=== PATIENT | female | born 1985 | race Caucasian/White ===

== ENCOUNTER 2016-06-16 14:02 | Emergency (ER) | payer OTHER ==
[~2016-06-16] VITALS: Ht 167.6 cm; Wt 77.3 kg
[2016-06-16 14:10] VITALS: BP 143/89; PULSE 101; RESP 18; O2SAT 100
--- NOTE | 2016-06-16 14:53 | ED.REPORT ---
HPI-Chest Pain Under 40 Date of Service Jun 16, 2016 ED Provider: Dr. Carlo Brown D.O. An otherwise healthy 30 year old female presents to the ED from Urgent Care with intermittent left-sided chest pain onset four days ago while laughing. The pain lasts for ten minutes at a time and is described as an "ache," exacerbated by alcohol and drugs. Associated symptoms include dizziness and left arm numbness. She denies shortness of breath or nausea. The ECG taken at Urgent Care was read as atrial flutter but clearly indicates normal sinus rhythm with PVCs. The patient has been using alcohol and cocaine quite frequently over the past eight months. Her last cocaine use was one week ago. Nursing Notes Stated Complaint: CHEST PAIN Chief Complaint: Chest Pain Nursing Notes Reviewed: Yes Allergies: Coded Allergies: paroxetine (Verified Allergy, Unknown, naussea, 06/16/16) hydrocodone (Verified Adverse Reaction, Intermediate, vomiting, 06/16/16) No Active Prescriptions or Reported Meds General Time Seen by MD: 14:52 Chief Complaint Chest pain Hx Obtained From: Patient Arrived By: Walk-in Sudden in Onset?: Yes Onset Occurred: 4 days ago Symptom Duration: Since onset Location: : Chest left Quality: Aching, Painful Severity: Current: Moderate Severity: Maximum: Moderate Associated with: Reports: Numbness/tingling, Denies: Fever, Nausea, Shortness of breath Pertinent Negative: Relieved by nothing Recent Healthcare: Recent doctor visit Past Medical History Past Medical History None reported Past Surgical History None reported Smoking History Current Every Day Smoker Social History Alcohol Use: 1-3 per day 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 Physical Exam Initial Vital Signs Vital Signs (First) Date Time Temp Pulse Resp B/P Pulse Ox O2 Delivery O2 Flow Rate FiO2 06/16/16 14:10 36.6 101 18 143/89 100 Room Air Initial VS: Reviewed Head / Eyes: Atraumatic, Normocephalic ENT: Conjunctiva normal, No scleral icterus Neck: Supple, Full range of motion Skin: Warm, Dry, No cyanosis Neurologic: Alert, Oriented, Nonfocal General/Constitutional: Awake, Alert Behavior: Positive: Anxious Respiratory / Chest: Breath sounds NL, Breath sounds = bilat, No respiratory distress Cardiovascular: Heart rate NL, Heart sounds NL Frequent PVCs Psychiatric: Cognitive function NL, Judgment/insight NL, Thought content NL Abnormal Mood/Affect: Positive: Anxious Interpretation & Diagnostics Lab Results Interpretation Result Diagram: 06/16/16 1540 06/16/16 1540 Test 06/16/16 14:40 06/16/16 15:40 06/16/16 17:56 Hold Urine Received (Received) White Blood Count 7.6th/mm3 (3.8-10.1) Red Blood Count 4.79mil/mm3 (3.90-5.20) Hemoglobin 14.5g/dL (12.0-15.6) Hematocrit 41.7% (35.0-46.0) Mean Corpuscular Volume 87.1fL (81-100) Mean Corpuscular Hemoglobin 30.3pg (27.0-35.0) Mean Corpuscular Hemoglobin Concent 34.8% (32.0-37.0) Red Cell Distribution Width 13.5% (12.3-15.4) Platelet Count 214bil/L (150-400) Neutrophils (%) (Auto) 74.7% (40-74) Lymphocytes (%) (Auto) 18.1% (14-46) Monocytes (%) (Auto) 5.1% (4-12) Eosinophils (%) (Auto) 1.3% (0-5) Basophils (%) (Auto) 0.4% (0-3) D-Dimer < 0.5mg/L (<0.50) Sodium Level 140mEq/L (134-144) Potassium Level 3.9mEq/L (3.5-5.2) Chloride Level 101mEq/L (97-108) Carbon Dioxide Level 24mmol/L (18-29) Blood Urea Nitrogen 9mg/dL (6-20) Creatinine 0.59mg/dL (0.57-1.00) Estimat Glomerular Filtration Rate 171mL/min (>59) Glucose Level 109mg/dL (60-99) Calcium Level 9.2mg/dL (8.5-10.1) Magnesium Level 2.3mg/dL (1.6-2.6) Total Bilirubin 0.4mg/dL (0.0-1.2) Aspartate Amino Transf (AST/SGOT) 15U/L (0-50) Alanine Aminotransferase (ALT/SGPT) 15U/L (0-32) Alkaline Phosphatase 44U/L (25-150) Pro-B-Type Natriuretic Peptide 39.72pg/mL (0-130) Total Protein 7.5g/dL (6.4-8.4) Albumin 4.9g/dL (3.4-5.0) Hold Matthew Top Tube Received (Received) Troponin T < 0.010ug/L (0.0-0.011) ECG Interpretation ECG Interpretation: Sinus rhythm rate 77 Normal ECG Time: 14:57 Interpreted by: ED physician X-Ray Chest Interpretation Chest Xray Interpretation: IMPRESSION: Normal chest Dictated by: Rc Lovell M.D. on 06/16/2016 at 15:01 View: Portable, 1 view Interpretation / Wet Read by: Interpret - Radiologist Re-Eval/Medical Decision Med Decision/Clinical Course I do not concur with the computer reading of the EKG from the urgent care. I feel that this is sinus rhythm with an obvious ID interval and QRS complexes following every P wave. There were instill R frequent PVCs. We observe this young lady for 4 hours on telemetry. She still had some frequent PVCs. Fluids were given. Dose of metoprolol was given. The PVCs for the most part resolved. She never had a tachycardia arrhythmia. MD was ruled out with history, physical, heart score and serial troponins. PE was ruled out with Wells criteria, pulmonary MD rule out criteria and a negative d-dimer. Electrolyte abnormality was ruled out. At discharge she felt great. I think that her symptoms are related to drug and alcohol abuse as well as anxiety. Vital long discussion with this. I am going to provide her a short course of Xanax to be taken for anxiety symptoms that she does not medicate with alcohol sedatives or stimulants. She agrees to this. She understands that if she mixes Xanax with drugs or alcohol it could be fatal. I explained all of that. She agreed to it. I will refer her to cardiology as well as primary care. She was discharged in stable condition. Source of Hx: Old records Re-Evaluation/Progress #1: Time of Eval: 17:27 Patient Status: Condition improved Re-Evaluation/Progress Note: Discussed with patient lab and x-ray results, diagnosis, and plan for repeat labs and probable discharge. Follow-up and return to the ER instructions given. Patient agrees with plan for care and all questions were addressed. Re-Evaluation/Progress #2: Time of Eval: 18:50 Patient Status: Condition improved, Complete relief Re-Evaluation/Progress Note: Patient rechecked. Discussed lab results and plan for discharge. Her symptoms have resolved. Counseled Regarding: Diagnosis, Lab results, Need for follow-up, When/why to return to ED Discharge & Departure Primary Impression: Chest pain Chest pain type: unspecified Qualified Code: R07.9 - Chest pain, unspecified Additional Impression: Palpitations Disposition: Home Discharge Condition All VS Reviewed: Yes Condition: Stable Patient Instructions: Chest Pain (ED), Palpitations (ED) Additional Instructions: Thank you for entrusting us with your care. Your exam today was reassuring for any life threatening causes of your chest pain. Your EKG showed premature ventricular contractions. Neither your Urgent Care nor your Emergency Department EKG showed atrial fibrillation in my opinion. I strongly recommend you do not use drugs of any kind, especially stimulants. For anxiety please take one Xanax every eight hours as prescribed. Do not drink alcohol, drive, or consume acetaminophen while taking Xanax. Call your primary care provider tomorrow for a follow-up appointment. Return to the ER with any new or worsening symptoms. Referrals: Jin Pimentel MD [facility] Attestation Portions of this note were transcribed by Rosamaria Callejas. I, Dr. Brown, personally performed the history, physical exam, and medical decision-making; I reviewed and confirmed the accuracy of the information in the transcribed note. Signed by: Marcio Roberts, 06/16/2016, 19:10 copies to: Jin Pimentel MD; [facility] Carlo Brown DO Jun 16, 2016 14:53 ROSAMARIA CALLEJAS Jun 16, 2016 15:00
--- NOTE | 2016-06-16 15:05 | DRSVH ---
PROCEDURE: X-RAY CHEST ONE VIEW, PORTABLE ([id number]) INDICATIONS: Chest Pain TECHNIQUE: One view of the chest was acquired. COMPARISON: None. FINDINGS: Surgical changes and devices: None. Lungs and pleura: No pleural effusions or pneumothorax. Lungs are clear. Mediastinum: Mediastinal contours appear normal. Heart size is normal. Bones and chest wall: No suspicious bony lesions. Overlying soft tissues appear unremarkable. IMPRESSION: Normal chest Dictated by: Rc Lovell M.D. on 06/16/2016 at 15:01 Approved by: Rc Lovell M.D. on 06/16/2016 at 15:02
[2016-06-16] MEDS ORDERED: 0.9% Sodium Chloride 1,000 ML IV SCH (15:15)
[2016-06-16 16:02] LABS: BASOPHILS % (AUTO) 0.4 % (0-3); EOSINOPHILS % (AUTO) 1.3 % (0-5); MONOCYTES % (AUTO) 5.1 % (4-12); Mean Corpuscular Hemoglobin 30.3 pg (27.0-35.0); Mean Corpuscular Volume 87.1 fL (81-100); NEUTROPHILS % (AUTO) 74.7 % (40-74); Platelet Count 214 bil/L (150-400)
[2016-06-16 16:33] LABS: TROPONIN T < 0.010 ug/L (0.0-0.011)
[2016-06-16 16:36] LABS: Magnesium 2.3 mg/dL (1.6-2.6)
[2016-06-16 16:51] VITALS: BP 136/83; PULSE 79; RESP 21; O2SAT 99
[2016-06-16] MEDS ORDERED: MeTOProlol 1 mg/mL 5 mL Inj IVPUSH ONE (17:30)
[2016-06-16 17:49] VITALS: BP 110/80; PULSE 59; RESP 14; O2SAT 99
[2016-06-16 18:25] VITALS: BP 120/83; PULSE 68; RESP 20; O2SAT 98
[2016-06-16 19:03] VITALS: BP 126/68; PULSE 68; RESP 14; O2SAT 97
== END 2016-06-16 19:05 | disposition home or self-care (01) ==
LOC: EDSEX 14:02 → SED 14:02
DX: R07.9 Chest pain, unspecified (principal); R00.2 Palpitations; R42 Dizziness and giddiness; R20.2 Paresthesia of skin; F10.20 Alcohol dependence, uncomplicated; F14.20 Cocaine dependence, uncomplicated; F17.200 Nicotine dependence, unspecified, uncomplicated; Z88.5 Allergy status to narcotic agent; Z88.8 Allergy status to other drugs, medicaments and biological substances
CPT/HCPCS: 36415; 71010; 80053; 83735; 83880; 84484; 85025; 85379; 93005; 96361; 96374; 99285; G0463; J7030